=== PATIENT | female | born 1960 | race Caucasian/White ===

== ENCOUNTER 2021-11-21 16:18 | Inpatient (IN) ==
[2021-11-21] MEDS ORDERED: 0.9 % Sodium Chloride 250 ML ONE (17:54)
[2021-11-21] MEDS ORDERED: Naloxone 0.4 MG/ML INJ IVP PRN (18:04)
[2021-11-21] MEDS ORDERED: Ondansetron 4 MG/2 ML VIAL IVP PRN (18:04)
[2021-11-21] MEDS ORDERED: Acetaminophen 325 MG TABLET PO PRN (18:04)
[2021-11-21] MEDS ORDERED: Perflutren Lipid Microsphere 1.3 ML in 0.9 % Sodium Chloride 8.7 ML IVP PRN (19:08)
[2021-11-21] MEDS ORDERED: Dextrose Gel 15 GM/37.5 ML TUBE PO PRN ×2 (19:09)
[2021-11-21] MEDS ORDERED: D5% in Water 1,000 ML IVC PRN (19:09)
[2021-11-21] MEDS ORDERED: *HR* Dextrose 50 % in Water (Syg) 50 ML SYRINGE IVP PRN (19:09)
[2021-11-21] MEDS: Pantoprazole 40 MG in 0.9 % Sodium Chloride Mini Bag 100 ML IVC SCH ×2 (20:25→23:46)
[2021-11-21] MEDS: 0.9 % Sodium Chloride 1,000 ML IVC SCH (20:31)
[2021-11-21 20:59] LABS: Hematocrit 30.6 % (35.3-44.9); Hemoglobin 9.9 g/dL (11.5-15.4); Immature Granulocytes % 0.6 % (0-4); Lymphocytes % 16.1 %; Mean Corpuscular HGB Conc 32.4 g/dL (31.6-35.5); Mean Corpuscular Hemoglobin 28.6 pg (28.0-33.3); Mean Corpuscular Volume 88.4 fL (83.0-100.0); Mean Platelet Volume 9.3 fL (9.4-12.4); Monocytes % 0.3 %; Neutrophils # 5.2 K/mcL (1.6-8.9); Platelet Count 264 K/mcL (140-400); Red Blood Count 3.46 M/mcL (3.82-4.97); Red Cell Distribution Width 12.9 % (11.5-14.5); White Blood Count 6.3 K/mcL (4.3-11.1)
[2021-11-21 21:06] LABS: INR 1.1; Prothrombin Time 12.1 Seconds (9.4-12.1)
[2021-11-21 21:09] LABS: Activated Partial Thrombo Time 33.7 Seconds (26.0-36.0)
[2021-11-21 21:31] LABS: Estimated Average Glucose 126 mg/dl
[2021-11-21 21:32] LABS: Alanine Aminotransferase 10 Units/L (7-52); Albumin 3.6 g/dL (3.5-5.7); Albumin/Globulin Ratio 1.4 (1.1-2.2); Alkaline Phosphatase 59 Units/L (34-104); Aspartate Amino Transferase 10 Units/L (13-39); BUN/Creatinine Ratio 58 (6-26); Bilirubin,Total 0.5 mg/dL (0.3-1.0); Blood Urea Nitrogen 44 mg/dL (8-23); Carbon Dioxide 20 mEq/L (23-29); Chloride 113 mEq/L (98-107); Globulin 2.6 g/dL (2.4-3.5); Glucose 205 mg/dL (70-105); Lipase 13 Units/L (11-82); Osmolality,Calculated 309 (280-300); Potassium 4.3 mEq/L (3.5-5.1); Sodium 141 mEq/L (136-145); Total Protein 6.2 g/dL (6.4-8.9); Troponin I 0.99 ng/mL (< 0.04); eGFR For African Americans > 60 (> 60); eGFR For Non-African Americans > 60 (> 60)
[2021-11-21 21:33] LABS: Thyroid Stimulating Hormone 0.388 mcIU/mL (0.340-5.600)
[2021-11-21 21:42] LABS: Folate 19.7 ng/mL (3.0-16.0)
[2021-11-22] MEDS: Insulin LISPRO 300 UNITS/3 ML VIAL SUBQ SCH ×4 (00:35→18:08)
[2021-11-22] MEDS: Pantoprazole 40 MG in 0.9 % Sodium Chloride Mini Bag 100 ML IVC SCH ×4 (04:28→23:43)
[2021-11-22 07:48] LABS: Basophils % 0.1 %; Hematocrit 25.7 % (35.3-44.9); Hemoglobin 8.4 g/dL (11.5-15.4); Immature Granulocytes % 0.6 % (0-4); Lymphocytes # 1.9 K/mcL (0.6-4.6); Lymphocytes % 24.2 %; Mean Corpuscular HGB Conc 32.7 g/dL (31.6-35.5); Mean Corpuscular Volume 88.6 fL (83.0-100.0); Mean Platelet Volume 9.4 fL (9.4-12.4); Monocytes # 0.5 K/mcL (0.0-1.3); Monocytes % 6.8 %; Neutrophils # 5.4 K/mcL (1.6-8.9); Platelet Count 250 K/mcL (140-400); Red Cell Distribution Width 13.2 % (11.5-14.5); Segmented Neutrophils % 68.3 %; White Blood Count 7.9 K/mcL (4.3-11.1)
[2021-11-22 07:56] LABS: BUN/Creatinine Ratio 52 (6-26); Blood Urea Nitrogen 39 mg/dL (8-23); Calcium 8.7 mg/dL (8.6-10.3); Carbon Dioxide 21 mEq/L (23-29); Chloride 114 mEq/L (98-107); Chol/HDL Ratio 4.7 (0-4.9); Cholesterol 145 mg/dL (< 200); Glucose 132 mg/dL (70-105); HDL Cholesterol 31 mg/dL (40-59); LDL Cholesterol,Calculated 85 mg/dL (< 100); Osmolality,Calculated 305 (280-300); Sodium 142 mEq/L (136-145); Triglycerides 146 mg/dL (< 150); eGFR For African Americans > 60 (> 60); eGFR For Non-African Americans > 60 (> 60)
[2021-11-22] MEDS: Cyanocobalamin (B-12) 1,000 MCG TABLET PO SCH (09:27)
[2021-11-22] MEDS ORDERED: *HR* Propofol 200 MG/20 ML VIAL IVP ONE ×2 (12:20→12:40)
[2021-11-22] MEDS ORDERED: Lidocaine -MPF 2% 5 ML VIAL ONE (12:20)
[2021-11-22] MEDS ORDERED: Fluticasone Propionate Nasal 50 MCG/SPRAY BOTTLE NS PRN (12:57)
[2021-11-22] MEDS ORDERED: traZODone 50 MG TABLET PO PRN (12:57)
[2021-11-22] MEDS: 0.9 % Sodium Chloride 1,000 ML IVC SCH (19:19)
[2021-11-23] MEDS: Insulin LISPRO 300 UNITS/3 ML VIAL SUBQ SCH ×4 (00:24→18:17)
[2021-11-23 04:38] LABS: Hematocrit 23.6 % (35.3-44.9); Hemoglobin 7.6 g/dL (11.5-15.4); Mean Corpuscular HGB Conc 32.2 g/dL (31.6-35.5); Mean Corpuscular Hemoglobin 29.2 pg (28.0-33.3); Mean Corpuscular Volume 90.8 fL (83.0-100.0); Mean Platelet Volume 9.4 fL (9.4-12.4); Platelet Count 219 K/mcL (140-400); Red Cell Distribution Width 13.3 % (11.5-14.5); White Blood Count 7.2 K/mcL (4.3-11.1)
[2021-11-23 04:58] LABS: BUN/Creatinine Ratio 37 (6-26); Blood Urea Nitrogen 29 mg/dL (8-23); Calcium 8.7 mg/dL (8.6-10.3); Carbon Dioxide 24 mEq/L (23-29); Chloride 112 mEq/L (98-107); Glucose 96 mg/dL (70-105); Osmolality,Calculated 298 (280-300); Potassium 3.9 mEq/L (3.5-5.1); Sodium 141 mEq/L (136-145); eGFR For African Americans > 60 (> 60); eGFR For Non-African Americans > 60 (> 60)
[2021-11-23] MEDS: Pantoprazole 40 MG in 0.9 % Sodium Chloride Mini Bag 100 ML IVC SCH ×3 (04:59→19:22)
[2021-11-23] MEDS ORDERED: 0.9 % Sodium Chloride 250 ML IVC SCH (07:15)
[2021-11-23] MEDS: Cyanocobalamin (B-12) 1,000 MCG TABLET PO SCH (08:22)
[2021-11-23] MEDS ORDERED: 0.9 % Sodium Chloride 250 ML ONE (11:01)
[2021-11-24] MEDS: Insulin LISPRO 300 UNITS/3 ML VIAL SUBQ SCH ×2 (00:01→06:04)
[2021-11-24 03:12] LABS: BUN/Creatinine Ratio 28 (6-26); Blood Urea Nitrogen 23 mg/dL (8-23); Calcium 8.7 mg/dL (8.6-10.3); Carbon Dioxide 23 mEq/L (23-29); Chloride 112 mEq/L (98-107); Glucose 93 mg/dL (70-105); Osmolality,Calculated 295 (280-300); Potassium 3.9 mEq/L (3.5-5.1); Sodium 141 mEq/L (136-145); eGFR For African Americans > 60 (> 60); eGFR For Non-African Americans > 60 (> 60)
[2021-11-24 03:15] LABS: Hematocrit 25.9 % (35.3-44.9); Hemoglobin 8.5 g/dL (11.5-15.4); Mean Corpuscular HGB Conc 32.8 g/dL (31.6-35.5); Mean Corpuscular Hemoglobin 29.3 pg (28.0-33.3); Mean Corpuscular Volume 89.3 fL (83.0-100.0); Mean Platelet Volume 9.6 fL (9.4-12.4); Platelet Count 208 K/mcL (140-400); Red Cell Distribution Width 13.5 % (11.5-14.5); White Blood Count 6.7 K/mcL (4.3-11.1)
[2021-11-24 07:58] VITALS: BP 123/72; PULSE 60; TEMP 97.8; O2SAT 93
[2021-11-24] MEDS: Cyanocobalamin (B-12) 1,000 MCG TABLET PO SCH (09:10)
== END 2021-11-24 12:00 | disposition home or self-care (01) | DRG 241 ==
LOC: 3ANU → SUATTDRO 17:42
PROVIDERS: ADMIT Internal Medicine; ATTEND General Practice